=== PATIENT | male | born 1985 | race Caucasian/White ===

== ENCOUNTER → 2016-12-05 | Outpatient (REF) | payer OTHER | END | disposition home or self-care (01) | LOC: M SFHCCLAY 07:57 | PROVIDERS: ATTEND Nurse Practitioner Family | DX: E78.4 Other hyperlipidemia (principal) ==

== ENCOUNTER → 2016-12-17 | Outpatient (CLI) | payer OTHER ==
[~2016-12-17] VITALS: Ht 165.1 cm; Wt 108.0 kg
[~2016-12-17] MED LIST: IBUP-1114 PO; LIDOCAINE 2% INJ 100 MG/5 ML SDV (FOR ANES.) As Ordered ONE; NS 1,000 ML IV SCH; OMEP40CA2 PO; PROPOFOL 200 MG/20 ML VIAL As Ordered ONE; SIMV40TA2 PO
--- NOTE | 2016-12-17 11:59 | ROOR ---
Patient Name: Black Slaughter Procedure Date: 12/17/2016 11:51 AM Date of : 1985 Age: 31 Room: [facility] Gender: Male Note Status: Finalized Procedure: Upper GI endoscopy Indications: Dysphagia, Heartburn Providers: Chas WALTER MD Referring MD: Colleen Mckeon NP Requesting Provider: Medicines: Monitored Anesthesia Care Complications: No immediate complications. Procedure: Pre-Anesthesia Assessment: - The heart rate, respiratory rate, oxygen saturations, blood pressure, adequacy of pulmonary ventilation, and response to care were monitored throughout the procedure. The Endoscope was introduced through the mouth, and advanced to the second part of duodenum. The upper GI endoscopy was accomplished without difficulty. The patient tolerated the procedure well. Findings: No endoscopic abnormality was evident in the esophagus to explain the patient's complaint of dysphagia. This was biopsied with a cold forceps for evaluation of eosinophilic esophagitis. The Z-line was regular and was found 38 cm from the incisors. The esophagus was normal. The stomach was normal. The examined duodenum was normal. Impression: - No endoscopic esophageal abnormality to explain patient's dysphagia. Biopsied. - Z-line regular, 38 cm from the incisors. - Normal esophagus. - Normal stomach. - Normal examined duodenum. Recommendation: - Continue present medications. - Await pathology results. - Follow an antireflux regimen. Chas Walter MD Chas WALTER MD 12/17/2016 11:59:07 AM This report has been signed electronically. Number of Addenda: 0 Note Initiated On: 12/17/2016 11:51 AM Estimated Blood Loss: Estimated blood loss: none.
[2016-12-17 12:25] VITALS: BP 134/76
== END ==
LOC: M OPP 10:10
PROVIDERS: ATTEND Internal Medicine Gastroenterology
DX: R47.02 Dysphasia (principal); R12 Heartburn; K21.9 Gastro-esophageal reflux disease without esophagitis; E78.00 Pure hypercholesterolemia, unspecified; Z72.0 Tobacco use; Z88.8 Allergy status to other drugs, medicaments and biological substances

== ENCOUNTER → 2017-01-15 | Outpatient (REF) | payer OTHER ==
[~2017-01-15] MED LIST changes: -LIDOCAINE 2% INJ 100 MG/5 ML SDV (FOR ANES.) As Ordered ONE; -NS 1,000 ML IV SCH; -PROPOFOL 200 MG/20 ML VIAL As Ordered ONE
== END ==
LOC: M SFHCLERA 20:16
PROVIDERS: ATTEND Nurse Practitioner Family
DX: R10.9 Unspecified abdominal pain (principal)

== ENCOUNTER → 2017-01-20 | Outpatient (REF) | payer OTHER ==
[2017-01-20 16:56] LABS: ALBUMIN 4.2 GM/DL (3.2-5.2); ALBUMIN/GLOBULIN RATIO 1.27 (1.00-1.93); ALKALINE PHOSPHATASE 100 U/L (45-117); ALT/SGPT 66 U/L (12-78); ANION GAP 10 MEQ/L (8-16); AST/SGOT 27 U/L (15-37); BILIRUBIN,TOTAL 0.4 MG/DL (0.2-1.0); BLOOD UREA NITROGEN 10 MG/DL (7-18); CALCIUM LEVEL 8.9 MG/DL (8.5-10.1); CARBON DIOXIDE LEVEL 27 MEQ/L (21-32); CHLORIDE LEVEL 104 MEQ/L (98-107); CREATININE FOR GFR 0.98 MG/DL (0.70-1.30); GLOMERULAR FILTRATION RATE > 60.0 (>60); GLUCOSE, FASTING 98 MG/DL (70-105); POTASSIUM SERUM 3.9 MEQ/L (3.5-5.1); SODIUM LEVEL 141 MEQ/L (136-145); TOTAL PROTEIN 7.5 GM/DL (6.4-8.2)
== END ==
LOC: M SFHCCLAY 11:42
PROVIDERS: ATTEND Family Medicine
DX: R10.11 Right upper quadrant pain (principal)

== ENCOUNTER → 2017-01-22 | Outpatient (CLI) | payer OTHER ==
--- NOTE | 2017-01-22 09:02 | REP ---
Right upper quadrant sonography: History: However quadrant pain. Comparison study: No comparison study. Findings: Scanning through the right upper quadrant of the abdomen demonstrates a normal sized, thin-walled gallbladder without evidence of stone or polyp. Common bile duct is normal measuring 0.4 cm in greatest diameter. No focal liver lesion is seen. Liver size is normal. There is evidence of mild fatty infiltration of the liver. No pancreatic abnormality is observed. No right renal abnormality is seen. There is no evidence of ascites. The right kidney measures 11.7 x 6.3 x 4.9 cm. Impression: Mild fatty infiltration of the liver, otherwise unremarkable right upper quadrant sonography. Signed by Varun South MD 01/22/2017 08:53 A
== END ==
LOC: M RAD 07:28
PROVIDERS: ATTEND Family Medicine
DX: R10.11 Right upper quadrant pain (principal); K76.0 Fatty (change of) liver, not elsewhere classified

== ENCOUNTER → 2017-02-05 | Outpatient (CLI) | payer OTHER ==
--- NOTE | 2017-02-05 10:37 | REP ---
BILIARY SCAN WITH GALLBLADDER EJECTION FRACTION: 02/05/2017 CLINICAL HISTORY: Right upper quadrant pain. Reflux, tenderness. Comparison gallbladder ultrasound 01/22/2017. TECHNIQUE: The patient received 6.5 mCi technetium 99m mebrofenin via an IV with sequential 5-minute images anteriorly. Thereafter, region of interest drawn around the gallbladder and an additional 1 hour of imaging in dynamic fashion performed after the patient received 8 ounces of Ensure Enlive with gallbladder ejection fraction calculated by a semi-automated method. FINDINGS: Homogeneous tracer distribution throughout the liver with activity first seen in the gallbladder fossa at 10 minutes and into the duodenum by 25 minutes. It crosses to the jejunum by 30 minutes with progressive washout of activity from the liver and progressive increased activity in the gallbladder. On post fatty meal dynamic scanning. The gallbladder ejection fraction is calculated at 89% for 60 minutes. The normal range is greater than 35%. IMPRESSION: 1. Normal biliary scan. Homogeneous prompt tracer distribution throughout the liver with prompt filling of the gallbladder and activity extending into the small bowel. Good washout. 2. Gallbladder ejection fraction is 89% at 1 hour, which is normal. Signed by Addison Almeida MD 02/07/2017 10:44 A
== END ==
LOC: M RAD 07:29
PROVIDERS: ATTEND Physician Assistant Medical
DX: R10.11 Right upper quadrant pain (principal)

== ENCOUNTER → 2017-02-28 | Outpatient (CLI) | payer OTHER ==
[~2017-02-28] MED LIST changes: +GASTROGRAFIN SOLUTION 30ML (Q9963) As Ordered ONE; +ISOVUE-370 76% 100ML VIAL (Q9967) As Ordered ONE
--- NOTE | 2017-02-28 09:43 | REP ---
CT ABDOMEN AND PELVIS WITH ORAL AND IV CONTRAST: CT ABDOMEN AND PELVIS WITH CONTRAST: TECHNIQUE: Axial contrast enhanced images from the lung bases to the pubic symphysis using 100 mL Isovue 370 intravenous contrast material with multiplanar reformations. The visualized lung bases are clear. The liver, spleen, adrenals, pancreas and kidneys are normal in appearance. There is no hydronephrosis. There is no nephrolithiasis. There is no abdominal aortic aneurysm. There is no adenopathy. There is no free air or free fluid. There is no bowel wall thickening. Metallic clip is seen in the right lower quadrant status post appendectomy. There is no pelvic mass. The urinary bladder is not well distended and not well evaluated. There does appear to be a small left inguinal hernia containing fat. IMPRESSION: No significant abnormality seen in the abdomen or pelvis aside from a small left inguinal hernia containing fat. Signed by Black Gerard MD 02/28/2017 05:35 P
== END ==
LOC: M RAD 06:53
PROVIDERS: ATTEND Physician Assistant Medical
DX: R10.11 Right upper quadrant pain (principal); R10.32 Left lower quadrant pain; K40.90 Unilateral inguinal hernia, without obstruction or gangrene, not specified as recurrent
CPT/HCPCS: 74178; Q9963; Q9967

== ENCOUNTER 2017-07-28 23:33 | Emergency (ER) | payer MEDICAID, OTHER, SELFPAY ==
[~2017-07-28] VITALS: Ht 165.1 cm; Wt 95.4 kg
[~2017-07-28 23:33] MED LIST changes: -GASTROGRAFIN SOLUTION 30ML (Q9963) As Ordered ONE; -ISOVUE-370 76% 100ML VIAL (Q9967) As Ordered ONE
[2017-07-29] MEDS ORDERED: FLUORESCEIN OPHTH 1 MG STRIP XX ONE (00:15)
[2017-07-29] MEDS ORDERED: TETRACAINE 0.5% OPHTH SOLN 4ML XX ONE (00:15)
[2017-07-29] MEDS ORDERED: KETOROLAC 0.5% OPHTH SOLN OU ONE (01:15)
[2017-07-29] MEDS ORDERED: KETO5OPD OU (01:15)
[2017-07-29 01:25] VITALS: BP 153/90
== END 2017-07-29 01:27 | disposition home or self-care (01) ==
LOC: M ED 23:33
DX: H16.133 Photokeratitis, bilateral (principal); E78.00 Pure hypercholesterolemia, unspecified; R51 Headache; Z79.899 Other long term (current) drug therapy

== ENCOUNTER 2017-10-14 21:39 | Emergency (ER) | payer OTHER ==
[~2017-10-14] VITALS: Ht 165.1 cm; Wt 100.0 kg
[~2017-10-14 21:39] MED LIST changes: +KETO5OPD OU
[2017-10-14] MEDS ORDERED: IPRATROPIUM 0.5MG/ALBUTEROL 2.5MG INH SOL UD 3ML (DUONEB)(J7620) NEB ONE (22:45)
[2017-10-14] MEDS ORDERED: ALBUTEROL SULFATE 2.5 MG/0.5 ML INH NEB SOLN INH ONE (22:45)
[2017-10-14] MEDS ORDERED: TUSS1CAP5 PO (23:35)
[2017-10-14] MEDS ORDERED: VENTAER IN (23:35)
[2017-10-14] MEDS ORDERED: AZIT-12 PO (23:35)
[2017-10-14] MEDS ORDERED: AZITHROMYCIN 250 MG TAB PO ONE (23:45)
[2017-10-14] MEDS ORDERED: TUSSICAPS ER 10/8MG CAPSULE PO ONE (23:45)
[2017-10-14 23:57] VITALS: BP 157/84
== END 2017-10-14 23:59 | disposition home or self-care (01) ==
LOC: M ED 21:39
DX: J20.9 Acute bronchitis, unspecified (principal); F17.210 Nicotine dependence, cigarettes, uncomplicated; Z87.09 Personal history of other diseases of the respiratory system; Z79.899 Other long term (current) drug therapy

== ENCOUNTER → 2018-02-19 | Outpatient (REF) | payer OTHER, MEDICAID ==
[2018-02-19 16:43] LABS: HEMATOCRIT 45.7 % (42.0-52.0); HEMOGLOBIN 16.1 g/dl (13.5-17.5); MEAN CORPUSCULAR HEMOGLOBIN 31.8 pg (27.0-33.0); MEAN CORPUSCULAR HGB CONC 35.2 g/dl (32.0-36.5); MEAN CORPUSCULAR VOLUME 90.1 fl (80.0-96.0); PLATELET COUNT, AUTOMATED 237 10^3/uL (150-450); RED BLOOD COUNT 5.07 10^6/uL (4.30-6.10); RED CELL DISTRIBUTION WIDTH 12.2 % (11.5-14.5); WHITE BLOOD COUNT 8.5 10^3/uL (4.0-10.0)
[2018-02-19 17:07] LABS: ALBUMIN 4.4 GM/DL (3.2-5.2); ALBUMIN/GLOBULIN RATIO 1.22 (1.00-1.93); ALKALINE PHOSPHATASE 82 U/L (45-117); ALT/SGPT 46 U/L (12-78); ANION GAP 6 MEQ/L (8-16); AST/SGOT 18 U/L (7-37); BILIRUBIN,TOTAL 0.5 MG/DL (0.2-1.0); BLOOD UREA NITROGEN 11 MG/DL (7-18); CALCIUM LEVEL 9.4 MG/DL (8.5-10.1); CARBON DIOXIDE LEVEL 29 MEQ/L (21-32); CHLORIDE LEVEL 106 MEQ/L (98-107); CHOLESTEROL LEVEL 196 MG/DL (<200); CHOLESTEROL RISK RATIO 5.157 (<5); CREATININE FOR GFR 1.01 MG/DL (0.70-1.30); GLOMERULAR FILTRATION RATE > 60.0 (>60); GLUCOSE, FASTING 90 MG/DL (70-100); HDL CHOLESTEROL 38 MG/DL (>40); LDL CHOLESTEROL 117.8 MG/DL (<100); NON-HDL-C 158 MG/DL; POTASSIUM SERUM 4.1 MEQ/L (3.5-5.1); PSA SCREENING 0.64 NG/ML (< 4.0); SODIUM LEVEL 141 MEQ/L (136-145); TRIGLYCERIDES LEVEL 201 MG/DL (<150)
== END ==
LOC: M SFHCCLAY 10:53
DX: K21.9 Gastro-esophageal reflux disease without esophagitis (principal); E78.4 Other hyperlipidemia; R39.198 Other difficulties with micturition
CPT/HCPCS: 84153

== ENCOUNTER → 2018-03-17 | Outpatient (CLI) | payer OTHER, MEDICAID ==
[2018-03-17 13:51] LABS: HEMATOCRIT 44.2 % (42.0-52.0); HEMOGLOBIN 15.6 g/dl (13.5-17.5); MEAN CORPUSCULAR HEMOGLOBIN 31.6 pg (27.0-33.0); MEAN CORPUSCULAR HGB CONC 35.3 g/dl (32.0-36.5); MEAN CORPUSCULAR VOLUME 89.7 fl (80.0-96.0); PLATELET COUNT, AUTOMATED 210 10^3/uL (150-450); RED BLOOD COUNT 4.93 10^6/uL (4.30-6.10); RED CELL DISTRIBUTION WIDTH 12.3 % (11.5-14.5); WHITE BLOOD COUNT 6.9 10^3/uL (4.0-10.0)
[2018-03-17 14:08] LABS: INR 0.91; PARTIAL THROMBOPLASTIN TIME 30.6 SECONDS (26.8-37.9); PROTHROMBIN TIME 12.3 SECONDS (12.4-14.5)
[2018-03-17 15:37] LABS: ANION GAP 6 MEQ/L (8-16); BLOOD UREA NITROGEN 10 MG/DL (7-18); CALCIUM LEVEL 9.3 MG/DL (8.5-10.1); CARBON DIOXIDE LEVEL 28 MEQ/L (21-32); CHLORIDE LEVEL 107 MEQ/L (98-107); CREATININE FOR GFR 0.99 MG/DL (0.70-1.30); GLOMERULAR FILTRATION RATE > 60.0 (>60); GLUCOSE, FASTING 97 MG/DL (70-100); POTASSIUM SERUM 4.6 MEQ/L (3.5-5.1); SODIUM LEVEL 141 MEQ/L (136-145)
== END ==
LOC: M SMT 11:01
DX: N35.9 Urethral stricture, unspecified (principal); N39.0 Urinary tract infection, site not specified
CPT/HCPCS: 80048

== ENCOUNTER 2018-03-20 09:03 | Day surgery (SDC) | payer OTHER ==
[~2018-03-20 09:03] MED LIST changes: -IBUP-1114 PO; -KETO5OPD OU; +LR 1,000 ML IV; -OMEP40CA2 PO; -SIMV40TA2 PO
[2018-03-20] MEDS ORDERED: ONDANSETRON 4MG/2ML VIAL (J2405) As Ordered (09:47)
[2018-03-20] MEDS ORDERED: dexameTHASONE 4 MG/ML 1ML VIAL (J1100) As Ordered (09:47)
[2018-03-20] MEDS ORDERED: PROPOFOL 200 MG/20 ML VIAL As Ordered (09:47)
[2018-03-20] MEDS ORDERED: MIDAZOLAM INJ 2 MG/2 ML VIAL (J2250) As Ordered (09:47)
[2018-03-20] MEDS ORDERED: fentaNYL 100 MCG/2 ML INJECTION (J3010) As Ordered (09:47)
[2018-03-20] MEDS ORDERED: METOCLOPRAMIDE INJ 10MG/2ML VIAL (J2765) As Ordered (11:10)
[2018-03-20] MEDS ORDERED: LR 1,000 ML IV (11:45)
[2018-03-20] MEDS ORDERED: fentaNYL 100 MCG/2 ML INJECTION (J3010) IV (11:45)
[2018-03-20] MEDS ORDERED: ACETAMINOPHEN TAB 650MG DOSE (2X325MG) PO (11:45)
[2018-03-20] MEDS ORDERED: PERCOCET 5MG/325MG TAB PO (11:45)
[2018-03-20] MEDS ORDERED: ONDANSETRON 4MG/2ML VIAL (J2405) IV (11:45)
== END 2018-03-20 13:30 | disposition home or self-care (01) ==
LOC: M SDC 09:03
DX: N35.9 Urethral stricture, unspecified (principal); K21.9 Gastro-esophageal reflux disease without esophagitis; F17.210 Nicotine dependence, cigarettes, uncomplicated; Z79.899 Other long term (current) drug therapy
CPT/HCPCS: 52276

== ENCOUNTER → 2019-03-01 | Outpatient (REF) | payer BC, MEDICAID ==
[~2019-03-01] MED LIST changes: +AZIT-12 PO; +IBUP-1114 PO; +KETO0.5S2 OU; -LR 1,000 ML IV; +OMEP40CA2 PO; +SIMV40TA2 PO; +TUSS1CAP5 PO; +VENTAER IN
[2019-03-01 12:00] LABS: HEMOGLOBIN 15.7 g/dl (13.5-17.5); MEAN CORPUSCULAR HEMOGLOBIN 31.8 pg (27.0-33.0); MEAN CORPUSCULAR HGB CONC 34.9 g/dl (32.0-36.5); MEAN CORPUSCULAR VOLUME 91.3 fl (80.0-96.0); PLATELET COUNT, AUTOMATED 230 10^3/uL (150-450); RED BLOOD COUNT 4.93 10^6/uL (4.30-6.10); WHITE BLOOD COUNT 7.1 10^3/uL (4.0-10.0)
[2019-03-01 12:12] LABS: ALT/SGPT 40 U/L (12-78); BILIRUBIN,TOTAL 0.3 MG/DL (0.2-1.0); BLOOD UREA NITROGEN 12 MG/DL (7-18); CALCIUM LEVEL 9.4 MG/DL (8.5-10.1); CARBON DIOXIDE LEVEL 27 MEQ/L (21-32); CHLORIDE LEVEL 107 MEQ/L (98-107); CHOLESTEROL LEVEL 294 MG/DL (<200); CHOLESTEROL RISK RATIO 9.187 (<5); CREATININE FOR GFR 0.93 MG/DL (0.70-1.30); GLOMERULAR FILTRATION RATE > 60.0 (>60); GLUCOSE, FASTING 94 MG/DL (70-100); HDL CHOLESTEROL 32 MG/DL (>40); LDL CHOLESTEROL 210 MG/DL (<100); NON-HDL-C 262 MG/DL; POTASSIUM SERUM 4.1 MEQ/L (3.5-5.1); SODIUM LEVEL 141 MEQ/L (136-145); TOTAL PROTEIN 7.1 GM/DL (6.4-8.2); TRIGLYCERIDES LEVEL 258 MG/DL (<150)
== END ==
LOC: M SFHCCLAY 07:07
PROVIDERS: ATTEND Nurse Practitioner Family
DX: K21.9 Gastro-esophageal reflux disease without esophagitis (principal); E78.49 Other hyperlipidemia

== ENCOUNTER → 2020-10-13 | Outpatient (CLI) | payer OTHER ==
[~2020-10-13] MED LIST changes: -OMEP40CA2 PO; +OMEP40CA97 PO; -SIMV40TA2 PO; +SIMV40TA20 PO
--- NOTE | 2020-10-17 07:21 | SLEEPCENT ---
DATE: 10/13/2020 ORDERED BY: ALAN Greene Nocturnal polysomnography was performed for evaluation of sleep physiology in this patient with a history of snoring. 7 hours and 3 minutes of data were reviewed. There were 325 minutes of sleep identified. Sleep latency was normal at 9.5 minutes. REM latency was delayed at 147 minutes. Sleep architecture showed fragmentation. There were two brief REM cycles noted. Overall sleep efficiency was 78.4%. The electrocardiogram showed a sinus rhythm with an average heart rate of 66 beats per minute. EEG showed normal waveforms for wake and sleep. There were 155 respiratory events identified of 10 seconds in duration or greater for an apnea-hypopnea index of 28.6. The events were primarily obstructive, not exclusive to sleep stage nor body posture. Arousals from respiratory events occurred 22 times per hour and oxygen desaturations were seen below 90% with some minor limb activity appreciated and other measures of sleep physiology were normal. IMPRESSION: Obstructive sleep apnea syndrome (G47.33), apnea-hypopnea index 28.6. RECOMMENDATION: The patient should be encouraged to return to [facility] for [facility]. In the interim, alcohol and sedative avoidance should be practiced and caution exercised during the operation of motor vehicles. NORBERTOD
== END ==
LOC: M SLEEP 20:00
PROVIDERS: ATTEND Nurse Practitioner Family
DX: G47.33 Obstructive sleep apnea (adult) (pediatric) (principal)

== ENCOUNTER → 2020-11-03 | Outpatient (CLI) | payer OTHER ==
--- NOTE | 2020-11-06 15:31 | SLEEPCENT ---
NOCTURNAL POLYSOMNOGRAPHY CPAP TITRATION DATE: 11/03/2020 ORDERED BY: ALAN Greene Nocturnal polysomnography was performed for the titration of pressure therapy in this patient with obstructive sleep apnea syndrome with apnea-hypopnea index of 28.6. For testing, the patient was fit with a Respironics ComfortGel nasal mask of petite size was used, 4 cm of water pressure were applied to the circuit, and the lights were extinguished. 7 hours and 46 minutes of data were reviewed. There were 403 minutes of sleep identified. Sleep latency was prolonged at 10 minutes. REM latency was prolonged at 145 minutes. Sleep architecture improved with increasing pressures. There were three REM cycles noted. Overall sleep efficiency was 88.6%. The electrocardiogram showed a sinus rhythm with an average heart rate of 58 beats per minute. EEG showed normal waveforms for wake and sleep. Best sleep was appreciated late in the study and a CPAP pressure of 15 with which pressure, the patient slept through REM without respiratory event or oxygen desaturation. IMPRESSION: Obstructive sleep apnea syndrome (G47.33). RECOMMENDATION: Nightly use of pressure therapy 15 cm of water. Brandi Mckeon
== END ==
LOC: M SLEEP 20:00
PROVIDERS: ATTEND Nurse Practitioner Family
DX: G47.33 Obstructive sleep apnea (adult) (pediatric) (principal)

== ENCOUNTER → 2021-01-15 | Outpatient (REF) | payer OTHER ==
[2021-01-15 11:49] LABS: HEMATOCRIT 42.7 % (42.0-52.0); HEMOGLOBIN 14.6 g/dl (13.5-17.5); MEAN CORPUSCULAR HEMOGLOBIN 31.2 pg (27.0-33.0); MEAN CORPUSCULAR HGB CONC 34.2 g/dl (32.0-36.5); MEAN CORPUSCULAR VOLUME 91.2 fl (80.0-96.0); PLATELET COUNT, AUTOMATED 219 10^3/uL (150-450); RED BLOOD COUNT 4.68 10^6/uL (4.30-6.10); WHITE BLOOD COUNT 7.7 10^3/uL (4.0-10.0)
[2021-01-15 13:01] LABS: ALBUMIN 4.1 GM/DL (3.2-5.2); ALT/SGPT 38 U/L (12-78); BILIRUBIN,TOTAL 0.3 MG/DL (0.2-1.0); BLOOD UREA NITROGEN 12 MG/DL (7-18); CALCIUM LEVEL 8.7 MG/DL (8.5-10.1); CARBON DIOXIDE LEVEL 29 MEQ/L (21-32); CHLORIDE LEVEL 105 MEQ/L (98-107); CHOLESTEROL LEVEL 292 MG/DL (<200); CHOLESTEROL RISK RATIO 8.111 (<5); CREATININE FOR GFR 1.04 MG/DL (0.70-1.30); GLOMERULAR FILTRATION RATE > 60.0 (>60); GLUCOSE, FASTING 93 MG/DL (70-100); HDL CHOLESTEROL 36 MG/DL (>40); LDL CHOLESTEROL 220 MG/DL (<100); NON-HDL-C 256 MG/DL; POTASSIUM SERUM 4.2 MEQ/L (3.5-5.1); SODIUM LEVEL 142 MEQ/L (136-145); TRIGLYCERIDES LEVEL 180 MG/DL (<150)
== END ==
LOC: M SFHCCLAY 06:46
PROVIDERS: ATTEND Nurse Practitioner Family
DX: E78.2 Mixed hyperlipidemia (principal); I10 Essential (primary) hypertension

== ENCOUNTER → 2021-05-04 | Outpatient (REF) | payer OTHER ==
[2021-05-04 12:47] LABS: CHOLESTEROL RISK RATIO 6.5 (<5)
== END ==
LOC: M SFHCCLAY 08:09
PROVIDERS: ATTEND Nurse Practitioner Family
DX: E78.2 Mixed hyperlipidemia (principal)

== ENCOUNTER → 2022-12-02 | Outpatient (REF) | payer OTHER ==
[~2022-12-02] MED LIST changes: +OMEP40CA4 PO; -OMEP40CA97 PO
[2022-12-02 11:50] LABS: HEMATOCRIT 43.2 % (42.0-52.0); MEAN CORPUSCULAR HEMOGLOBIN 31.6 pg (27.0-33.0); MEAN CORPUSCULAR HGB CONC 34.7 g/dl (32.0-36.5); MEAN CORPUSCULAR VOLUME 90.9 fl (80.0-96.0); PLATELET COUNT, AUTOMATED 264 10^3/uL (150-450); RED BLOOD COUNT 4.75 10^6/uL (4.30-6.10); WHITE BLOOD COUNT 7.9 10^3/uL (4.0-10.0)
[2022-12-02 12:12] LABS: HEMOGLOBIN A1c 5.2 % (4.0-6.0)
[2022-12-02 12:13] LABS: ALKALINE PHOSPHATASE 73 U/L (46-116); ALT/SGPT 49 U/L (7.0-40); AST/SGOT 22 U/L (<34); BILIRUBIN,TOTAL 0.4 MG/DL (0.3-1.2); BLOOD UREA NITROGEN 13 MG/DL (9-23); CALCIUM LEVEL 9.6 MG/DL (8.5-10.1); CARBON DIOXIDE LEVEL 27 MMOL/L (20-31); CHLORIDE LEVEL 102 MMOL/L (98-107); CHOLESTEROL LEVEL 271 MG/DL (<200); CHOLESTEROL RISK RATIO 6.93 (<5); CREATININE FOR GFR 0.92 MG/DL (0.70-1.30); GLOMERULAR FILTRATION RATE > 60.0 (>60); GLUCOSE, FASTING 94 MG/DL (60-100); HDL CHOLESTEROL 39.1 MG/DL (>40); LDL CHOLESTEROL 184.1 MG/DL (<100); NON-HDL-C 232 MG/DL; POTASSIUM SERUM 5.1 MMOL/L (3.5-5.1); SODIUM LEVEL 136 MMOL/L (136-145); TOTAL PROTEIN 6.9 G/DL (5.7-8.2); TRIGLYCERIDES LEVEL 239 MG/DL (<150)
[2022-12-02 12:14] LABS: THYROID STIMULATING HORMONE 1.162 uIU/ML (0.55-4.78)
[2022-12-02 12:15] LABS: FREE T4 1.16 NG/DL (0.89-1.76)
== END ==
LOC: M SFHCCLAY 07:08
PROVIDERS: ATTEND Nurse Practitioner Family
DX: I10 Essential (primary) hypertension (principal); E78.2 Mixed hyperlipidemia; R63.5 Abnormal weight gain; Z87.448 Personal history of other diseases of urinary system

== ENCOUNTER → 2023-01-17 | Outpatient (CLI) | payer OTHER | LOC: M RAD 06:37 | PROVIDERS: ATTEND Nurse Practitioner Family | DX: R74.8 Abnormal levels of other serum enzymes (principal) ==

== ENCOUNTER → 2023-07-01 | Outpatient (REF) | payer OTHER ==
[2023-07-01 18:21] LABS: HEMOGLOBIN A1c 5.1 % (4.0-6.0)
[2023-07-01 18:42] LABS: ALBUMIN 4.3 G/DL (3.2-5.2); ALKALINE PHOSPHATASE 87 U/L (46-116); ALT/SGPT 42 U/L (7.0-40); AST/SGOT 15 U/L (<34); BILIRUBIN,TOTAL 0.4 MG/DL (0.3-1.2); BLOOD UREA NITROGEN 14 MG/DL (9-23); CARBON DIOXIDE LEVEL 27 MMOL/L (20-31); CHLORIDE LEVEL 103 MMOL/L (98-107); CHOLESTEROL LEVEL 272 MG/DL (<200); CHOLESTEROL RISK RATIO 6.81 (<5); CREATININE FOR GFR 0.92 MG/DL (0.70-1.30); GLOMERULAR FILTRATION RATE > 60.0 (>60); GLUCOSE, FASTING 94 MG/DL (60-100); HDL CHOLESTEROL 39.9 MG/DL (>40); LDL CHOLESTEROL 188.7 MG/DL (<100); NON-HDL-C 232.1 MG/DL; POTASSIUM SERUM 5.4 MMOL/L (3.5-5.1); SODIUM LEVEL 139 MMOL/L (136-145); TOTAL PROTEIN 7.4 G/DL (5.7-8.2); TRIGLYCERIDES LEVEL 217 MG/DL (<150)
== END ==
LOC: M SFHCCLAY 10:20
PROVIDERS: ATTEND Nurse Practitioner Family
DX: E78.2 Mixed hyperlipidemia (principal); I10 Essential (primary) hypertension; K21.9 Gastro-esophageal reflux disease without esophagitis; R74.8 Abnormal levels of other serum enzymes

== ENCOUNTER → 2023-10-01 | Outpatient (REF) | payer OTHER | LOC: M SFHCCLAY 08:15 | PROVIDERS: ATTEND Nurse Practitioner Family | DX: I10 Essential (primary) hypertension (principal) ==

== ENCOUNTER → 2024-02-18 | Outpatient (REF) | payer OTHER ==
[2024-02-18 18:20] LABS: ALKALINE PHOSPHATASE 79 U/L (46-116); ALT/SGPT 49 U/L (7.0-40); AST/SGOT 23 U/L (<34); BILIRUBIN,TOTAL 0.4 MG/DL (0.3-1.2); BLOOD UREA NITROGEN 17 MG/DL (9-23); CALCIUM LEVEL 9.4 MG/DL (8.5-10.1); CARBON DIOXIDE LEVEL 28 MMOL/L (20-31); CHLORIDE LEVEL 104 MMOL/L (98-107); CHOLESTEROL LEVEL 252 MG/DL (<200); CHOLESTEROL RISK RATIO 6.01 (<5); CREATININE FOR GFR 0.87 MG/DL (0.70-1.30); GLOMERULAR FILTRATION RATE > 60.0 (>60); GLUCOSE, FASTING 104 MG/DL (60-100); HDL CHOLESTEROL 41.9 MG/DL (>40); LDL CHOLESTEROL 180.7 MG/DL (<100); NON-HDL-C 210.1 MG/DL; POTASSIUM SERUM 4.2 MMOL/L (3.5-5.1); SODIUM LEVEL 138 MMOL/L (136-145); TOTAL PROTEIN 7.1 G/DL (5.7-8.2); TRIGLYCERIDES LEVEL 147 MG/DL (<150)
== END ==
LOC: M SFHCCLAY 14:35
PROVIDERS: ATTEND Nurse Practitioner Family
DX: G47.33 Obstructive sleep apnea (adult) (pediatric) (principal); E78.2 Mixed hyperlipidemia; I10 Essential (primary) hypertension; K21.9 Gastro-esophageal reflux disease without esophagitis; R74.8 Abnormal levels of other serum enzymes